=== PATIENT | female | born 1940 | race Caucasian/White ===

== ENCOUNTER → 2023-06-04 06:59 | Day surgery (SDC) | payer OTHER, SELFPAY ==
[2023-06-04 07:55] LABS: Glucose - Point of Care 183 mg/dl (70-99)
[2023-06-04 08:03] VITALS: BMI 25.0
== END ==
LOC: CATH 06:59
PROVIDERS: ATTENDING PHYSICIAN Internal Medicine Cardiovascular Disease; FAMILY PHYSICIAN Internal Medicine; OTHER PHYSICIAN Internal Medicine Cardiovascular Disease
DX: Z45.09 Encounter for adjustment and management of other cardiac device (principal); I48.0 Paroxysmal atrial fibrillation; Z95.818 Presence of other cardiac implants and grafts; I95.9 Hypotension, unspecified; R06.02 Shortness of breath; I10 Essential (primary) hypertension; I49.5 Sick sinus syndrome; E11.9 Type 2 diabetes mellitus without complications; Z79.01 Long term (current) use of anticoagulants; Z79.84 Long term (current) use of oral hypoglycemic drugs
CPT/HCPCS: 93312; 93320; 93325; 82962